=== PATIENT | male | born 1995 | race Caucasian/White ===

== ENCOUNTER 2017-03-18 05:51 | Day surgery (SDC) | payer BC ==
[~2017-03-18] VITALS: Ht 180.3 cm; Wt 90.7 kg
[2017-03-18] VITALS (7 sets, daily range): BP systolic 101–125; BP diastolic 60–82
[~2017-03-18 05:51] MED LIST: VITAMIN D1000 UNI1 ORAL
--- NOTE | 2017-03-18 06:58 | Pre-Procedure Note/Attestation ---
Pre-Procedure Note/Attestation Complete Prior to Procedure Procedure Narrative: pilonidal cystectomy Indications for Procedure Pre-Operative Diagnosis: pilonidal cyst, s/p drainage Attestation I attest that I discussed the nature of the procedure; its benefits; risks and complications; and alternatives (and the risks and benefits of such alternatives ), prior to the procedure, with the patient (or the patient's legal medical office representative). I attest that, if there was a reasonable possibility of needing a blood transfusion, the patient (or the patient's legal medical office representative) was given the [facility] standardized written summary, pursuant to the Tadeo Teddy Blood Safety Act ([place] Health and Safety Code # 1645, as amended). I attest that I re-evaluated the patient just prior to the surgery and that there has been no change in the patient's H&P, except as documented below: DHEERAJ MCGEE March 18, 2017 06:58
[2017-03-18] MEDS ORDERED: Bupivacaine w/Epi 0.25% 30ml Vial INJ ONE (07:00)
[2017-03-18] MEDS ORDERED: Surgicel 4in x 8in TOPIC ONE (07:00)
[2017-03-18] MEDS ORDERED: Hydrogen Peroxide 473ml Bottle TOPIC ONE (07:12)
[2017-03-18] MEDS ORDERED: NS Irrig 1000ml ONE (07:30)
[2017-03-18] MEDS ORDERED: Propofol 10mg/ml 20ml IV ONE (07:30)
[2017-03-18] MEDS ORDERED: fentaNYL 100 mcg/2 mL IV ONE (07:30)
[2017-03-18] MEDS ORDERED: ProvayBlue 5mg/ml 10ml amp INJ ONE (07:30)
[2017-03-18] MEDS ORDERED: Midazolam 2mg/2ml Inj ONE (07:30)
[2017-03-18] MEDS ORDERED: LR 1000ml ONE (07:30)
[2017-03-18] MEDS ORDERED: Bacitracin Oint 15gm Tube TOPIC ONE (08:07)
[2017-03-18] MEDS ORDERED: fentaNYL 100 mcg/2 mL IV PRN (08:30)
--- NOTE | 2017-03-18 08:30 | Anethesia Preoperative Eval ---
Anesthesia Pre-op PMH/ROS General Date of Evaluation: March 18, 2017 Time of Evaluation: 07:00 Anesthesiologist: vianca ASA Score: ASA 1 Mallampati Score Class I : Soft palate, uvula, fauces, pillars visible Class II: Soft palate, uvula, fauces visible Class III: Soft palate, base of uvula visible Class IV: Only hard plate visible Mallampati Classification: Class I Allergies: Coded Allergies: MINOCYCLINE (Verified Allergy, Mild, psychological, 03/17/17) Anesthesia Pre-op Phys. Exam Physician Exam Last Vital Signs Date Time Temp Pulse Resp B/P Pulse Ox O2 Delivery O2 Flow Rate FiO2 03/18/17 08:25 69 27 117/63 98 Room Air 03/18/17 08:20 98.1 Maribell Ro MD March 18, 2017 08:30
--- NOTE | 2017-03-18 08:30 | Immediate Post-Op Evaluation ---
Immediate Post-Op Evalulation Immediate Post-Op Evalulation Procedure: pilonidal cystectomy Date of Evaluation: March 18, 2017 Time of Evaluation: 08:30 Nausea: No Vomiting: No Patient Status: patent Given Within 1 Hr of Incision: Yes Maribell Ro MD March 18, 2017 08:30
--- NOTE | 2017-03-18 08:38 | Brief Operative Note ---
Immediate Post Operative Note Operative Note Pre-op Diagnosis: pilonidal cyst, s/p drainage Procedure: pilonidal cystectomy Post-op Diagnosis: same as pre-op Surgeon: javi Anesthesiologist: vianca Anesthesia: general Specimen: yes Complications: none Condition: stable Estimated Blood Loss: minimal Drains: other - Bay #19 Fr Implant(s) used?: No DHEERAJ MCGEE March 18, 2017 08:37
[2017-03-18] MEDS ORDERED: Tylenol #3 tab (300mg/30mg) ORAL PRN (08:45)
[2017-03-18] MEDS ORDERED: Norco 5mg/325mg tab ORAL PRN (08:45)
[2017-03-18] MEDS ORDERED: HYDROmorphone 1mg/ml Carpuject SUBQ PRN (08:45)
--- NOTE | 2017-03-18 09:26 | 48 Hour Post Anesthesia Eval ---
Post Anesthesia Evaluation Procedure: pilonidal cystectomy Date of Evaluation: March 18, 2017 Time of Evaluation: 09:26 Nausea: No Vomiting: No Mental Status/LOC: patient returned to baseline Follow-up care needed: ready to discharge Maribell Ro MD March 18, 2017 09:26
--- NOTE | 2017-03-18 11:15 | Operative Note - Dictated ---
DATE OF OPERATION: 03/18/2017 SURGEON: Theodore Galvin M.D. SUBSTANCE ABUSE PREVENTION COORDINATOR: None. ANESTHESIOLOGIST: Dr. Ro. ANESTHESIA: General. PREOPERATIVE DIAGNOSIS: 1. Pilonidal cyst, status post drainage of abscess. POSTOPERATIVE DIAGNOSIS: 1. Pilonidal cyst, status post drainage of abscess. NAME OF OPERATION: Pilonidal cystectomy. FINDINGS AND INDICATIONS: The patient is a very pleasant 22-year-old, male with a history of superior intergluteal swelling pain tenderness and drainage of an abscess in the past. For that reason, he has intermittent drainage and swelling in the area and he saw me and I advised him to undergo a pilonidal cystectomy. This was done uneventfully, there were two tiny openings in the upper intergluteal region, which were removed. PROCEDURE: With the patient lying in a prone position jackknife on the operating room table, under local anesthesia plus deep IV sedation with the entire lower back and intergluteal regions prepped and draped in usual sterile fashion with Betadine, the methylene blue was injected into the sinus opening, and careful injection of a methylene blue with peroxide was done staining the entire tract. The area was marked with an elliptic incision vertically and it was incised with a 15 blade, and careful dissection undertaken all the way around the entire infected area, which had been marked for the peroxide and methylene blue. The specimen was sent to pathology. The area was irrigated with peroxide Betadine and saline. Flaps were created to both sides, and a 19-[place] drain was then placed into the wound and brought out through a separate incision in the right buttocks, secured to the skin with 2-0 nylon material. The edges were then approximated with 0 Vicryl interrupted sutures, 2-0 Vicryl subcutaneous sutures and 0 Prolene sutures over a bolster dressing and 2-0 nylon horizontal mattress sutures for approximation of the edges of skin. A sterile dressing with 4x4s was then placed. The patient tolerated the procedure well. ESTIMATED BLOOD LOSS: Less than 10 mL. COUNTS: Sponge and needle counts correct. DISPOSITION: He went to the recovery room in stable condition. Theodore Galvin M.D. DR: Leeroy JOB#: [id number] CC:
== END 2017-03-18 09:55 | disposition home or self-care (01) ==
LOC: SUR 05:51
DX: L05.91 Pilonidal cyst without abscess (principal); J30.89 Other allergic rhinitis; E55.9 Vitamin D deficiency, unspecified; Z88.3 Allergy status to other anti-infective agents
CPT/HCPCS: 11772; J2250; J2704; J3010; J7120; Q9968; 94003; 94150